=== PATIENT | male | born 1970 | race Caucasian/White ===

== ENCOUNTER → 2016-11-21 | Day surgery (SDC) | payer BC ==
[~2016-11-21] MED LIST: ACETAMINOPHEN/HYDROcodone 325 MG/5 MG TAB ONE; IBUP-238 PO; KETOROLAC TROMETHAMINE 30 MG/ML (IVP) VIAL ONE; LACTATED RINGER'S 1,000 ML BAG IV ONE; LACTATED RINGER'S 1000 ML INJ 1,000 ML ONE; MIDAZOLAM HCL 2 MG/2 ML VIAL ONE; MORPHINE SULFATE 4 MG/ML INJ ONE; ONDANSETRON HCL 4 MG/2 ML VIAL IV PUSH ONE; SODIUM CHLORIDE 0.9% INJ 10 ML ONE; ceFAZolin INJ 1,000 MG VIAL ONE
--- NOTE | 2016-11-21 11:52 | TN ---
cc: KARISSA ALONSO M.D. DATE OF OPERATION November 21, 2016 PREOPERATIVE DIAGNOSIS Right Achilles' tendon rupture. POSTOPERATIVE DIAGNOSIS Right Achilles' tendon rupture. PROCEDURE Right Achilles' tendon rupture primary repair. SURGEON Lee Alonso MD ENGINE DISPATCHER Staff SPECIMEN None. ESTIMATED BLOOD LOSS None. COMPLICATIONS None. ANESTHESIA General. DRAINS None. TOURNIQUET TIME 20 minutes at 200 mmHg. CONDITION Stable. PLAN OF ACTIVITY As per orders. PROCEDURE The patient was brought into the operating room and had satisfactory general endotracheal anesthesia by Dr. Dillan Mojica of the Department of Anesthesia. The patient was carefully transferred onto the operating table in a prone position. Great care was taken to protect all pressure points. The right lower extremity was prepped and draped in the usual sterile manner. The extremity was exsanguinated by Willy wrap, the tourniquet inflated to 200 mmHg. Small posterior lateral exposure to the Achilles' tendon was made. Dissection was carried down through the subcutaneous tissue. The patient was found to have a complete rupture with "shredding" of the Achilles' tendon. Dissection was carried proximally and distally. Two #2 Ticron sutures in modified Liberty weave type manner were used to repair the tendon with excellent approximation of the tendon. #2-0 Vicryl then was used in the peritendon to repair the peritendon. The subcutaneous tissue was closed in layers with 2-0 Vicryl. The skin was approximated with 2-0 nylon. The tourniquet was deflated. The wound itself was dry. Sterile dressings were applied. The patient was placed in a posterior splint in equinus position. The patient tolerated the procedure well and arrived in the recovery room in stable and satisfactory condition. MD MAXI Ag/COLIN /11:20 AM /11:27 AM
== END | disposition home or self-care (01) ==
LOC: ESDC 08:06
PROVIDERS: ATTEND Orthopaedic Surgery Orthopaedic Surgery of the Spine
DX: S86.011A Strain of right Achilles tendon, initial encounter (principal)
CPT/HCPCS: 01472; 27650; J0690; J1885; J2250; J2270; J2405; J3010; J7120